=== PATIENT | female | born 1985 | race Caucasian/White ===

== ENCOUNTER 2017-09-14 12:00 | Emergency (ER) | payer OTHER, BC ==
[2017-09-14 12:22] VITALS: BP 157/93
--- NOTE | 2017-09-14 12:43 | UC ---
Respiratory Complaint HPI - HPI Summary HPI Summary: Started getting sick with ST and some chest congestion almost a month ago. Last week completely lost voice, had some elevated temperatures tmax = 101F. No more fevers through the weekend or today, but now has unrelenting cough with chest congestion and is barely able to bring up mucus. Just found out she is , estimates approx 5 weeks. Denies facial pain or significant nasal drainage. Has nasal congestion that just started about 4 days ago. - History of Current Complaint Chief Complaint: UCRespiratory Stated Complaint: URI Time Seen by Provider: 09/14/17 12:20 Hx Obtained From: Patient ?: No Onset/Duration: Gradual Onset Timing: Constant Character: Cough: Productive Aggravating Factors: Deep Breaths, Recumbent Position Associated Signs And Symptoms: Positive: URI, Nasal Congestion. Negative: Wheezing, Hemoptysis, Dizziness - Allergies/Home Medications Allergies/Adverse Reactions: Allergies Allergy/AdvReac Type Severity Reaction Status Date / Time No Known Allergies Allergy Verified 09/14/17 12:22 PMH/Surg Hx/FS Hx/Imm Hx Previously Healthy: Yes - Surgical History Surgical History: Yes Surgery Procedure, Year, and Place: c section - Family History Known Family History: Negative: Blood Disorder - Social History Occupation: Employed Full-time Lives: With Family Alcohol Use: None Substance Use Type: None Smoking Status (MU): Current Some Day Smoker Review of Systems Constitutional: Fatigue Skin: Negative Eyes: Negative ENT: Sore Throat Respiratory: Cough Cardiovascular: Negative Gastrointestinal: Negative Genitourinary: Negative Motor: Negative Neurovascular: Negative Musculoskeletal: Negative Neurological: Negative Psychological: Negative Is Patient Immunocompromised?: No All Other Systems Reviewed And Are Negative: Yes Physical Exam Triage Information Reviewed: Yes Appearance: No Pain Distress, Obese Vital Signs: Initial Vital Signs Temp 98.1 F 09/14/17 12:17 Pulse 79 09/14/17 12:17 Resp 18 09/14/17 12:17 BP 157/93 09/14/17 12:17 Pulse Ox 97 09/14/17 12:17 Vital Signs Reviewed: Yes Eye Exam: Normal Eyes: Positive: Conjunctiva Clear ENT: Positive: Hearing grossly normal, Pharynx normal, Nasal congestion, TMs normal, Hoarse voice. Negative: Nasal drainage Dental Exam: Normal Neck exam: Normal Neck: Positive: Supple, Nontender, No Lymphadenopathy Respiratory: Positive: No respiratory distress, No accessory muscle use, Rhonchi - at bases, partially clear with cough. Negative: Wheezing Cardiovascular Exam: Normal Cardiovascular: Positive: RRR, No Murmur Musculoskeletal Exam: Normal Neurological Exam: Normal Neurological: Positive: Alert Psychological Exam: Normal Skin Exam: Normal UC Diagnostic Evaluation - Laboratory O2 Sat by Pulse Oximetry: 97 Respiratory Course/Dx - Differential Dx/Diagnosis Provider Diagnoses: suspect bacterial cause to infectious bronchitis. bronchospasm Discharge - Discharge Plan Condition: Stable Disposition: HOME Prescriptions: Albuterol HFA INHALER* [Ventolin HFA Inhaler*] 1 - 2 puff INH Q4H PRN #1 mdi PRN Reason: cough wheeze Amoxicillin PO (*) [Amoxicillin 875 MG (*)] 875 mg PO BID #14 tab Patient Education Materials: Acute Bronchitis (ED), Bronchospasm (ED) Referrals: No Primary Care Phys,NOPCP [Primary Care Provider] - Additional Instructions: I suspect bacterial infection on top of your previous viral infection. Plain guaifenesin is safe in and may help with your thick sputum. You can also take benadryl (diphenhydramine) 25mg at bedtime as needed for post-nasal drip or very productive cough. Come back if you have new fevers or trouble breathing.
== END 2017-09-14 12:43 | disposition home or self-care (01) ==
LOC: UCEAST 12:00
DX: J98.01 Acute bronchospasm (principal); Z72.0 Tobacco use
CPT/HCPCS: 99202; G0463

== ENCOUNTER 2018-05-10 02:43 | Inpatient (IN) | payer BC ==
[2018-05-09 13:46] LABS: ABS Basophils 0.1 10^3/ul (0-0.2); ABS Eosinophils 0.1 10^3/ul (0-0.6); ABS Lymphocytes 1.4 10^3/ul (1.0-4.8); ABS Monocytes 0.4 10^3/ul (0-0.8); ABS Neutrophils 5.7 10^3/ul (1.5-7.7); ABS Nucleated RBC 0 10^3/ul; Eosinophil % 1.3 % (0-6); Hematocrit 30 % (35-47); Hemoglobin 10.4 g/dl (12.0-16.0); Lymphocyte % 18.4 % (25-47); Mean Corpuscular HGB Conc 35 g/dl (31-36); Mean Corpuscular Hemoglobin 30 pg (27-31); Mean Corpuscular Volume 87 fL (80-97); Mean Platelet Volume 6.8 um3 (7.4-10.4); Nucleated Red Blood Cells % 0.1; Platelet Count 201 10^3/ul (150-450); Red Blood Count 3.45 10^6/ul (4.00-5.40); Red Cell Distribution Width 14 % (10.5-15); White Blood Count 7.7 10^3/ul (3.5-10.8)
[~2018-05-10 02:43] MED LIST: Buffered Lidocaine 0.9% SYRIN* 5 ML/SYR SYRINGE INTRADERM ONE
[2018-05-10] MEDS ORDERED: Sodium Citrate/Citric Acid* 15 ML UDC PO ONE (06:49)
[2018-05-10] MEDS ORDERED: Ranitidine IV (NF) 50 MG in NS 0.9% 50 ML* 50 ML IVPB SCH (07:00)
[2018-05-10] MEDS ORDERED: ceFOXitin 2 GM IVPREMIX* 2 GM/50 ML BAG ONE (07:04)
[2018-05-10] MEDS: Famotidine IV* 10 MG/ML 2 ML (20 mg) IV SCH (07:10)
[2018-05-10] MEDS ORDERED: fentaNYL* 50 MCG/ML 2 ML VIAL (100 MCG VIAL) ONE (07:12)
[2018-05-10] MEDS ORDERED: Lidocaine 2% PF * 5 ML VIAL ONE (07:12)
[2018-05-10] MEDS ORDERED: Succinylcholine* 20 MG/ML 10 ML VIAL ONE (07:12)
[2018-05-10] MEDS ORDERED: Propofol* 10 MG/ML 20 ML BTL IV PUSH ONE (07:12)
[2018-05-10] MEDS ORDERED: Ondansetron INJ* 2 MG/ML VIAL ONE (07:14)
[2018-05-10] MEDS ORDERED: Phenylephrine IV* 40 MCG/ML 10 ML SYRINGE ONE ×2 (07:14→08:23)
[2018-05-10] MEDS ORDERED: Bupivacaine-MPF SPINAL* 7.5 MG/ML - 2ML AMP ONE (07:16)
[2018-05-10] MEDS ORDERED: Morphine PF AMP (0.5MG/ML)* 5 MG/10 ML AMP ONE (07:24)
[2018-05-10] MEDS ORDERED: Morphine INJ* 10 MG/ML 1 ML CARPUJECT ONE (07:24)
[2018-05-10] MEDS ORDERED: Oxytocin in LR* 20 UNITS/1,000 ML BAG IVPB ONE (07:42)
[2018-05-10] MEDS ORDERED: EPHEDrine (Pressors)* 50 MG/ML VIAL ONE ×2 (08:52)
[2018-05-10] MEDS ORDERED: HYDROmorphone INJ* 0.5 MG/0.5 ML SYRINGE IV PRN (09:38)
[2018-05-10] MEDS ORDERED: Ketorolac INJ* 30 MG/ML 1 ML VIAL IV PRN (09:38)
[2018-05-10] MEDS ORDERED: Naloxone* 0.4 MG/ML 1 ML VIAL IV PRN ×2 (09:38→09:56)
[2018-05-10] MEDS ORDERED: Acetaminophen TAB* 325 MG PO PRN ×2 (09:38→09:56)
[2018-05-10] MEDS ORDERED: Glycerin ADULT SUPP PR PRN (09:46)
[2018-05-10] MEDS ORDERED: Witch Hazel PAD* JAR TOPICAL PRN (09:46)
[2018-05-10] MEDS ORDERED: diPHENhydraMINE IV* 50 MG/ML 1 ml VIAL (BENADRYL) IV PRN (09:56)
[2018-05-10] MEDS ORDERED: oxyCODONE/Acetamin 5/325 MG* TAB PO PRN ×2 (09:56)
[2018-05-10] MEDS ORDERED: Ondansetron INJ* 2 MG/ML VIAL IV PRN (09:56)
[2018-05-10] MEDS: Ketorolac INJ* 30 MG/ML 1 ML VIAL IV PRN ×2 (11:14→18:05)
[2018-05-10] MEDS: Simethicone TAB* 80 MG TAB.CHEW PO SCH ×3 (12:35→19:18)
[2018-05-10] MEDS: Docusate CAP* 100 MG PO SCH ×2 (12:35→19:18)
--- NOTE | 2018-05-10 16:47 | OP ---
OPERATIVE REPORT: DATE OF OPERATION: 05/10/18 DATE OF : 83 SURGEON: Juliet Woodson MD. SECURITY OFFICER SUPERVISOR: BHUMI Murphy. ANESTHESIOLOGIST: Dr. Melendez. ANESTHESIA: Spinal. PRE-OP DIAGNOSES: 1. History of previous x2. 2. A 39 weeks' gestation. 3. Satisfied parity. POST-OP DIAGNOSES: 1. History of previous x2. 2. A 39 weeks' gestation. 3. Satisfied parity. OPERATIVE PROCEDURE: Repeat low-transverse section and bilateral tubal ligation. INDICATIONS: This patient is a 33-year-old 3, para 2 at 39 weeks' gestation today, who presented for her scheduled cesarian section and tubal ligation. The was extensively counseled for the procedure and consent was signed. ESTIMATED BLOOD LOSS: 600 cc. URINE OUTPUT: 100 cc. IV FLUIDS: 1600 cc lactated Ringer's. MATERIALS TO LAB: Bilateral tube segments and cord blood. FINDINGS: Uterus with extremely thin lower uterine segment less than 1 mm in thickness in a large area. Tubes and ovaries appeared normal. Delivery was productive of a 7 pounds 3 ounce male with Apgars of 9 and 9. Time of delivery was 0847. COMPLICATIONS: None. DESCRIPTION OF PROCEDURE: The risks, benefits, and alternatives were described to the patient, and informed consent was obtained. The patient was taken to the operating room with IV running, where spinal anesthesia was induced and found to be adequate. The patient was prepped and draped in normal sterile fashion in the dorsal supine position with a leftward tilt. A Pfannenstiel skin incision was made with a scalpel through the patient's previous incision. This was carried down to the underlying fascia using the scalpel. The fascia was scored in the midline, and the incision was extended using Holloway scissors. The fascia was dissected off the underlying rectus muscles using blunt and sharp dissection. The rectus muscles were in the midline using dissection with a Lindsey clamp. The peritoneum was then entered bluntly. A bladder blade was placed. The lower uterine segment was noted to be extremely thin, almost transparent. A low transverse uterine incision was then made with the scalpel. This was carried down to the amniotic membranes. The membranes were then ruptured, productive of clear fluid. The uterine incision was extended using blunt traction. The head was elevated to the level of the incision, and, with fundal pressure, the head delivered without difficulty. The shoulders then were also both delivered and the body followed. The had excellent tone and cried immediately on delivery. A single nuchal cord was present. The cord was doubly clamped and cut. The infant was then handed to the awaiting stock associate. Cord blood was collected. The placenta was delivered with manual extraction. The uterus was then exteriorized and cleared of all clots and debris. The uterine incision was then reapproximated using 0 Polysorb in a running-locked fashion. A second layer was not placed as the incision was hemostatic and the extremely thin myometrium likely would have torn. The posterior cul-de-sac was irrigated with saline. The right fallopian tube was elevated, and the distal half was clamped off with a large Lindsey clamp. The tube was tied off with two 3-0 Polysorb ties, then excised with Metzenbaum scissors with good hemostasis. The same was performed on the left side, also with good results. The uterus was then returned to the abdomen. The incision was reinspected and still noted to be hemostatic. The peritoneum was closed with 3-0 Vicryl in a running fashion. The fascia was closed with 0 Polysorb in a running fashion. The subcutaneous tissues were made hemostatic using the Bovie. The subcutaneous tissues were then reapproximated using 3-0 Vicryl in interrupted stitches. The skin was then closed with 4-0 Monocryl in a subcuticular stitch. A sterile bandage was then placed over the incision. The patient tolerated the procedure well. Sponge, lap, and needle counts were correct x2. [id number]/[facility] #: [id number] [facility] HEALTH PARTNERSLaury
[2018-05-11] MEDS: Ketorolac INJ* 30 MG/ML 1 ML VIAL IV PRN ×2 (00:36→06:01)
[2018-05-11 06:55] LABS: ABS Basophils 0 10^3/ul (0-0.2); ABS Eosinophils 0.1 10^3/ul (0-0.6); ABS Lymphocytes 1.6 10^3/ul (1.0-4.8); ABS Monocytes 0.6 10^3/ul (0-0.8); ABS Neutrophils 6.6 10^3/ul (1.5-7.7); ABS Nucleated RBC 0 10^3/ul; Eosinophil % 0.8 % (0-6); Hematocrit 23 % (35-47); Lymphocyte % 17.5 % (25-47); Mean Corpuscular HGB Conc 35 g/dl (31-36); Mean Corpuscular Hemoglobin 30 pg (27-31); Mean Corpuscular Volume 87 fL (80-97); Mean Platelet Volume 6.8 um3 (7.4-10.4); Nucleated Red Blood Cells % 0; Platelet Count 145 10^3/ul (150-450); Red Blood Count 2.68 10^6/ul (4.00-5.40); Red Cell Distribution Width 14 % (10.5-15); White Blood Count 8.9 10^3/ul (3.5-10.8)
[2018-05-11] MEDS: Docusate CAP* 100 MG PO SCH ×3 (07:40→20:16)
[2018-05-11] MEDS: oxyCODONE/Acetamin 5/325 MG* TAB PO PRN ×4 (07:40→22:36)
[2018-05-11] MEDS: Simethicone TAB* 80 MG TAB.CHEW PO SCH ×4 (07:41→22:35)
[2018-05-11] MEDS ORDERED: Acetaminophen TAB* 325 MG PO PRN (08:10)
[2018-05-11] MEDS ORDERED: oxyCODONE/Acetamin 5/325 MG* TAB PO PRN (08:10)
[2018-05-11] MEDS: Famotidine IV* 10 MG/ML 2 ML (20 mg) IV SCH ×2 (08:17→08:20)
[2018-05-11] MEDS: Ferrous Gluconate TAB* 324 MG TAB PO SCH (08:21)
[2018-05-11] MEDS: Ibuprofen TAB* 600 MG PO SCH ×4 (08:21→18:23)
[2018-05-12] MEDS: Ibuprofen TAB* 600 MG PO SCH ×4 (00:36→12:40)
[2018-05-12] MEDS: oxyCODONE/Acetamin 5/325 MG* TAB PO PRN ×3 (03:03→10:35)
[2018-05-12 08:13] VITALS: BP 129/80
[2018-05-12] MEDS: Ferrous Gluconate TAB* 324 MG TAB PO SCH (10:00)
[2018-05-12] MEDS: Docusate CAP* 100 MG PO SCH (10:00)
[2018-05-12] MEDS: Simethicone TAB* 80 MG TAB.CHEW PO SCH ×2 (10:00→12:40)
== END 2018-05-12 14:13 | disposition home or self-care (01) | DRG 540 ==
LOC: UNDOADMIN 02:43 → MCHOB 02:43
PROVIDERS: ADMIT Obstetrics & Gynecology; ATTEND Obstetrics & Gynecology
PROC: 0UB70ZZ Excision of Bilateral Fallopian Tubes, Open Approach (ICD-10-PCS; 2018-05-10)
PROC: 10D00Z1 Extraction of Products of Conception, Low, Open Approach (ICD-10-PCS; principal; 2018-05-10 07:45)
DX: O34.211 Maternal care for low transverse scar from previous cesarean delivery (principal); O99.334 Smoking (tobacco) complicating childbirth; F17.210 Nicotine dependence, cigarettes, uncomplicated; O69.81X0 Labor and delivery complicated by cord around neck, without compression, not applicable or unspecified; O90.81 Anemia of the puerperium; D64.9 Anemia, unspecified; Z3A.39 39 weeks gestation of pregnancy; Z37.0 Single live birth
CPT/HCPCS: 36415; 85025; 86850; 86900; 86901; 88302; A9270-GY; J0330; J0694; J1200; J1885; J2270; J2405; J2704; J3010